=== PATIENT | female | born 1955 | race Caucasian/White ===

== ENCOUNTER 2017-01-25 14:59 | Emergency (ER) | payer OTHER ==
[~2017-01-25] VITALS: Ht 160 cm; Wt 122.3 kg
[~2017-01-25 14:59] MED LIST: ATOR40TA49 PO; CLON1 PO; LORTA5 PO; METHY10 PO; ORPH100T PO; PRIL20CA PO; SERT100 PO
[2017-01-25 15:06] VITALS: BP 135/65; PULSE 54; RESP 18; TEMP 97.8; O2SAT 95
[2017-01-25] MEDS ORDERED: ATOR40TA16 PO (15:39)
[2017-01-25] MEDS ORDERED: FENO160T PO (15:39)
[2017-01-25] MEDS ORDERED: SERT-129 PO (15:39)
[2017-01-25] MEDS ORDERED: FURO20TA PO (15:39)
[2017-01-25] MEDS ORDERED: ASPI-146 PO (15:39)
[2017-01-25] MEDS ORDERED: METF500T PO (15:39)
[2017-01-25] MEDS ORDERED: OMEP20TA PO (15:39)
[2017-01-25] MEDS ORDERED: ALPR1TAB3 PO (15:39)
--- NOTE | 2017-01-25 16:23 | PD ---
HPI Chief Complaint: Diabetic Time Seen by Provider: 16:05 Travel History International Travel<30 days: No Contact w/Intl Traveler<30days: No Traveled to known affect area: No History of Present Illness HPI c/o sob, cough, productive sputum, over past 2 days..and now has developed a headache as well, generalized, worse with coughing, no photophobia, no vertigo...denies fever/v/n/d/abd pain/cp h/o copd, dm, smoker PFSH Past Medical History Asthma: Yes (1-2X A YEAR) Anxiety: Yes Depression: Yes Cancer: No Cardiac Catheterization: Yes High Cholesterol: Yes Diabetes: Yes Patient Takes Glucophage: Yes Diminished Hearing: Yes Glaucoma: No Hepatitis: No Hiatal Hernia: No Hypertension: No Medical other: Yes (hx of pneumonia back and neck problems , ARTHRITIS) Musculoskeletal: Yes (FX BACK) Psychiatric: Yes (anxiety attacks) Respiratory: Yes (PE 7-) Thyroid Disease: No Influenza Vaccination: Yes ?: Not : 4 Para: 2 : 2 Past Surgical History Abdominal Surgery: Yes (CHOLECYSTECTOMY) Cholecystectomy: Yes Gynecologic Surgery: Yes (UTERINE ABLATION) Hysterectomy: Yes Oral Surgery: Yes (T AND A) Pacemaker: No Tonsillectomy: Yes (AND ADENOIDS) Other Surgery: Yes Social History Alcohol Use: No Tobacco Use: Yes (1ppd) Substance Use: No Allergies-Medications (Allergen,Severity, Reaction): Coded Allergies: No Known Allergies (Verified , 01/25/17) Reported Meds & Prescriptions Reported Meds & Active Scripts Active Prednisone 20 Mg Tab 40 Mg PO DAILY Take 40 mg (2 tablets) daily for 5 days Zithromax Z-Alvaro (Azithromycin) 250 Mg Dspk 250 Mg PO DIRECTED 500 MG (2 tabs) day 1, then 1 tab days 2-5. Ventolin Hfa 18 GM Inh (Albuterol Sulfate) 90 Mcg/Act Aer 1 Puff INH Q4H PRN Reported Atorvastatin (Atorvastatin Calcium) 40 Mg Tab 40 Mg PO HS Sertraline (Sertraline HCl) 100 Mg Tab 200 Mg PO DAILY Fenofibrate 160 Mg Tab 160 Mg PO DAILY Furosemide 20 Mg Tab 20 Mg PO DAILY PRN Alprazolam 1 Mg Tab 1 Mg PO HS PRN Omeprazole 20 Mg Tab 20 Mg PO DAILY Metformin (Metformin HCl) 500 Mg Tab 500 Mg PO BIDPC With meals Ecotrin Regular Strength (Aspirin) 325 Mg Tabdr 325 Mg PO DAILY Review of Systems Except as stated in HPI: all other systems reviewed are Neg Respiratory: Positive: Cough, Wheezing Physical Exam Narrative GENERAL: SKIN: Warm and dry. HEAD: Atraumatic. Normocephalic. EYES: Pupils equal and round. No scleral icterus. No injection or drainage. ENT: No nasal bleeding or discharge. Mucous membranes pink and moist. NECK: Trachea midline. No JVD. CARDIOVASCULAR: Regular rate and rhythm. RESPIRATORY: No accessory muscle use. bilateral wheezing sounds Breath sounds equal bilaterally. GASTROINTESTINAL: Abdomen soft, non-tender, nondistended. Hepatic and splenic margins not palpable. MUSCULOSKELETAL: Extremities without clubbing, cyanosis, or edema. No obvious deformities. NEUROLOGICAL: Awake and alert. No obvious cranial nerve deficits. Motor grossly within normal limits. Five out of 5 muscle strength in the arms and legs. Normal speech. PSYCHIATRIC: Appropriate mood and affect; insight and judgment normal. Data Data Last Documented VS Vital Signs Date Time Temp Pulse Resp B/P (MAP) Pulse Ox O2 Delivery O2 Flow Rate FiO2 01/25/17 18:58 88 18 124/87 (99) 96 01/25/17 17:20 21 01/25/17 16:55 Room Air 01/25/17 15:06 97.8 Orders Orders Electrocardiogram (01/25/17 16:41) Complete Blood Count With Diff (01/25/17 16:41) Comprehensive Metabolic Panel (01/25/17 16:41) Troponin I (01/25/17 16:41) Lipase (01/25/17 16:41) Influenzae A/B Antigen (01/25/17 16:41) Chest, Single Ap (01/25/17 16:41) Ct Brain W/O Iv Contrast(Rout) (01/25/17 16:41) Iv Access Insert/Monitor (01/25/17 16:41) Ecg Monitoring (01/25/17 16:41) Oximetry (01/25/17 16:41) Methylprednisolone So Succ Inj (Solumedr (01/25/17 16:45) Albuterol Neb (Albuterol Neb) (01/25/17 16:45) Hydromorphone Pf Inj (Dilaudid Pf Inj) (01/25/17 16:45) Labs Laboratory Tests Test 01/25/17 16:47 White Blood Count 7.9 TH/MM3 Red Blood Count 4.81 MIL/MM3 Hemoglobin 13.8 GM/DL Hematocrit 42.0 % Mean Corpuscular Volume 87.4 FL Mean Corpuscular Hemoglobin 28.6 PG Mean Corpuscular Hemoglobin Concent 32.8 % Red Cell Distribution Width 14.4 % Platelet Count 196 TH/MM3 Mean Platelet Volume 9.4 FL Neutrophils (%) (Auto) 69.2 % Lymphocytes (%) (Auto) 20.8 % Monocytes (%) (Auto) 6.1 % Eosinophils (%) (Auto) 2.9 % Basophils (%) (Auto) 1.0 % Neutrophils # (Auto) 5.5 TH/MM3 Lymphocytes # (Auto) 1.6 TH/MM3 Monocytes # (Auto) 0.5 TH/MM3 Eosinophils # (Auto) 0.2 TH/MM3 Basophils # (Auto) 0.1 TH/MM3 CBC Comment DIFF FINAL Differential Comment Blood Urea Nitrogen 19 MG/DL Creatinine 1.60 MG/DL Random Glucose 91 MG/DL Total Protein 7.8 GM/DL Albumin 3.7 GM/DL Calcium Level 9.7 MG/DL Alkaline Phosphatase 35 U/L Aspartate Amino Transf (AST/SGOT) 30 U/L Alanine Aminotransferase (ALT/SGPT) 28 U/L Total Bilirubin 0.4 MG/DL Sodium Level 140 MEQ/L Potassium Level 4.0 MEQ/L Chloride Level 103 MEQ/L Carbon Dioxide Level 29.7 MEQ/L Anion Gap 7 MEQ/L Estimat Glomerular Filtration Rate 33 ML/MIN Troponin I LESS THAN 0.02 NG/ML Lipase 166 U/L [facility] Medical Decision Making Medical Screen Exam Complete: Yes Emergency Medical Condition: Yes Medical Record Reviewed: Yes Differential Diagnosis mi v electrolyte abnl v ich v pna v copd exac Narrative Course patient presented with worries of headache along with cough as well as her glucose monitor reading her glucose at 400's or so. patient was quite concerned about those findings. During evaluation she was found to have respiratory symptoms as well. upon a complete evaluation two separate readings of her glucose were normal bringing into question her monitor working status. However, due to the thorough evaluation patient was found to be in copd exacerbation during this visit, but wihtout e/o pulm edema, pna or ptx. additionally, ct head was neg for ich or sinus infection. also no major significant electrolyte abnormality that requires further management. patient was found to be stable for discharge and was advised to have her monitor tested and follow up with her pcp. patient agreed with both Diagnosis Primary Impression: copd exacerbation Additional Impression: Tension headache Patient Instructions: COPD (Chronic Obstructive Pulmonary Disease) (ED), General Instructions, Tension Headache (ED) Scripts Prednisone (Prednisone) 20 Mg Tab 40 MG PO DAILY, #3 TAB 0 Refills Take 40 mg (2 tablets) daily for 5 days Prov: Alejo Rosales MD 01/25/17 Azithromycin (Zithromax Z-Alvaro) 250 Mg Dspk 250 MG PO DIRECTED for Infection, #1 DSPK 0 Refills 500 MG (2 tabs) day 1, then 1 tab days 2-5. Prov: Alejo Rosales MD 01/25/17 Albuterol 18 GM Inh (Ventolin Hfa 18 GM Inh) 90 Mcg/Act Aer 1 PUFF INH Q4H Y for SHORTNESS OF BREATH, #1 INHALER 0 Refills Prov: Alejo Rosales MD 01/25/17 Disposition: 01 DISCHARGE HOME Condition: Stable Alejo Rosales MD Jan 25, 2017 16:23
[2017-01-25 16:45] VITALS: O2SAT 96
[2017-01-25] MEDS ORDERED: methylPREDNISolone SOD SUCC 125 MG/2 ML VIAL IVP ONE (16:45)
[2017-01-25] MEDS ORDERED: HYDROmorphone HCL PF 1 MG/ML VIAL IV PUSH ONE (16:45)
[2017-01-25 16:55] VITALS: BP 121/59; PULSE 57; RESP 18; O2SAT 98
[2017-01-25 16:59] LABS: AUTOMATED NEUTROPHIL # 5.5 TH/MM3 (1.8-7.7); BASOPHIL # 0.1 TH/MM3 (0-0.2); EOSINOPHIL # 0.2 TH/MM3 (0-0.4); EOSINOPHIL % 2.9 % (0.0-4.0); HEMO FLAGS DIFF FINAL; LYMPH % 20.8 % (9.0-44.0); LYMPHOCYTE # 1.6 TH/MM3 (1.0-4.8); MEAN CELL VOLUME 87.4 FL (80.0-100.0); MEAN CORPUSCULAR HEMOGLOBIN 28.6 PG (27.0-34.0); MEAN CORPUSCULAR HGB CONC 32.8 % (32.0-36.0); MONO % 6.1 % (0.0-8.0); NEUT % 69.2 % (16.0-70.0); PLATELET COUNT 196 TH/MM3 (150-450); RED BLOOD COUNT 4.81 MIL/MM3 (4.00-5.30); RED CELL DISTRIBUTION WIDTH 14.4 % (11.6-17.2); WHITE BLOOD COUNT 7.9 TH/MM3 (4.0-11.0)
[2017-01-25 17:09] LABS: CHLORIDE 103 MEQ/L (98-107); SODIUM (NA) 140 MEQ/L (136-145)
[2017-01-25 17:12] LABS: ANION GAP 7 MEQ/L (5-15); BICARBONATE 29.7 MEQ/L (21.0-32.0); BLOOD UREA NITROGEN 19 MG/DL (7-18)
[2017-01-25 17:15] LABS: ALT (GPT) 28 U/L (10-53); AST (GOT) 30 U/L (15-37); GLOMERULAR FILTRATION RATE 33 ML/MIN (>89)
[2017-01-25 17:17] LABS: TOTAL BILIRUBIN ADULT 0.4 MG/DL (0.2-1.0)
[2017-01-25] MEDS: RESP: ALBUTEROL 2.5 MG/3 ML NEB (SCH) INH (17:17)
[2017-01-25 17:18] LABS: ALKALINE PHOSPHATASE 35 U/L (45-117)
--- NOTE | 2017-01-25 17:18 | RADRPT ---
EXAM DATE/TIME: 01/25/2017 16:44 [facility] COMPARISON: No previous studies available for comparison. INDICATIONS : Diabetes mellitus type 2 complications MEDICAL HISTORY : Diabetes mellitus type II. SURGICAL HISTORY : section. Cholecystectomy. Tonsillectomy. Adenoidectomy. ENCOUNTER: Initial ACUITY: 2 days PAIN SCORE: 5/10 LOCATION: Headache, mid-back pain. The lungs are clear. The heart is minimally enlarged. The pulmonary vascularity is normal. There is n o evidence for infiltrate or failure. The portion of the bony skeleton visualized is unremarkable. CONCLUSION: Compensated cardiomegaly otherwise negative Board Certified Radiologist. This report was verified electronically.
[2017-01-25 17:20] VITALS: O2SAT 97
--- NOTE | 2017-01-25 18:03 | RADRPT ---
EXAM DATE/TIME: 01/25/2017 17:49 [facility] COMPARISON: No previous studies available for comparison. INDICATIONS : Cephalgia for two days. RADIATION DOSE: 59.34 CTDIvol (mGy) MEDICAL HISTORY : diabetes, pulmonary embolism SURGICAL HISTORY : Tonsillectomy. Hysterectomy.cardiac catheterization ENCOUNTER: Initial ACUITY: 2 days PAIN SCALE: 8/10 LOCATION: Bilateral head TECHNIQUE: Multiple contiguous axial images were obtained of the head. Using automated exposure control and adj ustment of the mA and/or kV according to patient size, radiation dose was kept as low as reasonably a chievable to obtain optimal diagnostic quality images. DICOM format image data is available electro nically for review and comparison. FINDINGS: CEREBRUM: The ventricles are normal for age. No evidence of midline shift, mass lesion, hemorrhage or acute in farction. No extra-axial fluid collections are seen. POSTERIOR FOSSA: The cerebellum and brainstem are intact. The 4th ventricle is midline. The cerebellopontine angle i s unremarkable. EXTRACRANIAL: The visualized portion of the orbits is intact. SKULL: The calvaria is intact. No evidence of skull fracture. CONCLUSION: Negative for acute process. Kennedy Main MD FACR on January 25, 2017 at 18:01 Board Certified Radiologist. This report was verified electronically.
[2017-01-25] MEDS ORDERED: VENTAER INH (18:38)
[2017-01-25] MEDS ORDERED: ZITHTAB PO (18:38)
[2017-01-25] MEDS ORDERED: PRED20 PO (18:38)
[2017-01-25 18:58] VITALS: BP 124/87
--- NOTE | 2017-01-26 13:51 | EKG ---
Date Performed: 01/25/2017 Time Performed: 16:49:52 PTAGE: 61 years EKG: SINUS BRADYCARDIA WITH FIRST DEGREE AV BLOCK ABNORMAL ECG Compared to prior tracing no sign ificant change PREVIOUS TRACING : 03/25/2012 11.11 DOCTOR: Claus Navarro Interpretating Date/Time 01/26/2017 13:48:17
== END 2017-01-25 18:59 | disposition home or self-care (01) ==
LOC: PHED 14:59
DX: J44.1 Chronic obstructive pulmonary disease with (acute) exacerbation (principal); G44.209 Tension-type headache, unspecified, not intractable; R94.31 Abnormal electrocardiogram [ECG] [EKG]; E11.9 Type 2 diabetes mellitus without complications; E78.00 Pure hypercholesterolemia, unspecified; H91.90 Unspecified hearing loss, unspecified ear; F17.200 Nicotine dependence, unspecified, uncomplicated; Z79.84 Long term (current) use of oral hypoglycemic drugs; Z87.09 Personal history of other diseases of the respiratory system; Z86.59 Personal history of other mental and behavioral disorders; Z86.79 Personal history of other diseases of the circulatory system; Z87.39 Personal history of other diseases of the musculoskeletal system and connective tissue
CPT/HCPCS: 70450; 71010; 80053; 83690; 84484; 85025; 87804; 93005; 94640; 94664; 96374; 96375; 99285; J1170; J2930; J7613